=== PATIENT | female | born 1980 ===

== ENCOUNTER → 2024-09-05 | Outpatient (CLI) | payer OTHER ==
[2024-09-06 15:36] LABS: Bacterial Vaginosis PCR Negative (NEGATIVE); Candida Group, PCR NOT DETECTED (NOT DETECT); Candida glabrata-krusei, PCR NOT DETECTED (NOT DETECT)
== END | disposition home or self-care (01) ==
LOC: LAB SHORT 18:04 → LAB 18:04
PROVIDERS: Physician Assistant
DX: N89.8 Other specified noninflammatory disorders of vagina (principal)
CPT/HCPCS: 81515